=== PATIENT | male | born 1975 | race Caucasian/White ===

== ENCOUNTER 2021-12-26 13:53 | Emergency (ER) | payer OTHER ==
[~2021-12-26] VITALS: Ht 177.8 cm; Wt 83.9 kg
[2021-12-26 14:21] VITALS: BP 153/98
--- NOTE | 2021-12-26 14:41 | NUR ---
SEEN AND EXAMINED BY .
[2021-12-26] MEDS ORDERED: KETOROLAC TROMETHAMINE INJ 30 MG/ML VIAL IM ONE (16:00)
[2021-12-26] MEDS ORDERED: IBUP-1955 PO (16:01)
[2021-12-26] MEDS ORDERED: CYCL5TAB PO (16:01)
[2021-12-26] MEDS ORDERED: KETOROLAC TROMETHAMINE 15 MG/ML VIAL ONE (16:03)
== END 2021-12-26 16:11 | disposition home or self-care (01) ==
LOC: ER 13:55
DX: S16.1XXA Strain of muscle, fascia and tendon at neck level, initial encounter (principal); V49.49XA Driver injured in collision with other motor vehicles in traffic accident, initial encounter; Y93.89 Activity, other specified; Y92.413 State road as the place of occurrence of the external cause; Y99.8 Other external cause status
CPT/HCPCS: 71045; 72125; 96372; 99284; J1885